=== PATIENT | female | born 1965 | race Caucasian/White ===

== ENCOUNTER 2018-04-23 06:09 | Day surgery (SDC) | payer OTHER ==
[~2018-04-23 06:09] MED LIST: CEFAZOLIN 2 GM/50 ML (PMX) 50 ML IVPB; SOD CHLORIDE 0.9% 1,000 ML IV
[2018-04-23] MEDS ORDERED: LABETALOL HCL 20MG INJ (07:00)
[2018-04-23] MEDS ORDERED: CEFAZOLIN 1 GM INJ (07:00)
[2018-04-23] MEDS ORDERED: METOCLOPRAMIDE 10 MG INJ (07:00)
[2018-04-23] MEDS ORDERED: DEXAMETHASONE 4 MG/ML 1 ML INJ (07:00)
[2018-04-23] MEDS ORDERED: SUGAMMADEX SODIUM 200 MG/2 ML VIAL IV (07:26)
[2018-04-23] MEDS ORDERED: MIDAZOLAM 1 MG/ML 2 ML INJ (07:26)
[2018-04-23] MEDS ORDERED: FENTAnyl 50 MCG/ML VIAL (07:26)
[2018-04-23] MEDS ORDERED: ROCURONIUM 50 MG INJ (07:26)
[2018-04-23] MEDS ORDERED: SUCCINYLCHOLINE CHLORIDE 100 MG/5 ML SYG IV (07:26)
[2018-04-23] MEDS ORDERED: PROPOFOL 20 ML (07:26)
[2018-04-23] MEDS ORDERED: LIDOCAINE 2% (SDV) 5 ML INJ (07:26)
[2018-04-23] MEDS ORDERED: ROPIVACAINE 0.5 % 30 ML VIAL (07:27)
[2018-04-23] MEDS ORDERED: ONDANSETRON 4 MG INJ (07:27)
[2018-04-23] MEDS ORDERED: FENTAnyl 50 MCG/ML VIAL IV ×2 (07:30)
[2018-04-23] MEDS ORDERED: KETOROLAC 30 MG INJ IV (07:30)
[2018-04-23] MEDS ORDERED: DIPHENHYDRAMINE 50 MG INJ IV (07:30)
[2018-04-23] MEDS ORDERED: IPRATROPIUM (NEB) 0.5 MG/2.5 ML AMP HHN (07:30)
[2018-04-23] MEDS ORDERED: HYDROmorphONE 1 MG/5 ML IV SYRINGE IV ×3 (07:30)
[2018-04-23] MEDS ORDERED: ONDANSETRON 4 MG INJ IV (07:30)
[2018-04-23] MEDS ORDERED: hydrALAzine 20 MG INJ IV (07:30)
[2018-04-23] MEDS ORDERED: LABETALOL HCL 20MG INJ IV (07:30)
[2018-04-23] MEDS ORDERED: MEPERIDINE 25 MG INJ IV (07:30)
[2018-04-23] MEDS: BUPIVACAINE 0.25% (MPF) 30 ML INJ (08:13)
[2018-04-23] MEDS ORDERED: HYDROCODONE/APAP (5/325) TAB PO (08:30)
== END 2018-04-23 10:45 | disposition home or self-care (01) ==
LOC: SDS 06:09
DX: K80.20 Calculus of gallbladder without cholecystitis without obstruction (principal); E66.9 Obesity, unspecified; Z68.34 Body mass index [BMI] 34.0-34.9, adult
CPT/HCPCS: 47562; 88304

== ENCOUNTER 2018-09-11 05:11 | Inpatient (IN) | payer OTHER ==
[2018-09-11] MEDS ORDERED: SEVOFLURANE 15 MIN (07:00)
[2018-09-11] MEDS ORDERED: EPHEDrine SULFATE 50 MG/5 ML SYG (07:00)
[2018-09-11] MEDS ORDERED: LIDOCAINE 2% (SDV) 5 ML INJ (07:25)
[2018-09-11] MEDS ORDERED: ROCURONIUM 50 MG INJ (07:25)
[2018-09-11] MEDS ORDERED: SUCCINYLCHOLINE CHLORIDE 100 MG/5 ML SYG IV (07:25)
[2018-09-11] MEDS ORDERED: PROPOFOL 20 ML (07:25)
[2018-09-11] MEDS ORDERED: FENTAnyl 50 MCG/ML VIAL (07:26)
[2018-09-11] MEDS ORDERED: MIDAZOLAM 1 MG/ML 2 ML INJ (07:26)
[2018-09-11] MEDS ORDERED: DEXAMETHASONE 4 MG/ML 5 ML INJ (07:38)
[2018-09-11] MEDS ORDERED: CEFAZOLIN 1 GM INJ (07:38)
[2018-09-11] MEDS ORDERED: FAMOTIDINE 20 MG INJ (07:38)
[2018-09-11] MEDS ORDERED: ONDANSETRON 4 MG INJ (07:38)
[2018-09-11] MEDS ORDERED: FENTAnyl 50 MCG/ML VIAL IV ×3 (08:00)
[2018-09-11] MEDS ORDERED: PROCHLORPERAZINE 10 MG INJ IV (08:00)
[2018-09-11] MEDS ORDERED: HYDROmorphONE 0.5 MG/0.5 ML SYG IV ×2 (08:00)
[2018-09-11] MEDS ORDERED: DIPHENHYDRAMINE 50 MG INJ IV ×2 (08:00)
[2018-09-11] MEDS ORDERED: NALOXONE (0.4 MG/ML) INJ IV (08:00)
[2018-09-11] MEDS ORDERED: HYDROmorphONE 1 MG/5 ML IV SYRINGE IV ×3 (08:00)
[2018-09-11] MEDS ORDERED: ONDANSETRON 4 MG INJ IV ×2 (08:00→10:00)
[2018-09-11] MEDS ORDERED: MEPERIDINE 25 MG INJ IV (08:00)
[2018-09-11] MEDS ORDERED: HYDROmorphONE 2 MG/ML SYG (08:12)
[2018-09-11] MEDS ORDERED: GLYCOPYRROLATE 0.4 MG INJ ×3 (09:11→09:30)
[2018-09-11] MEDS ORDERED: NEOSTIGMINE 3 MG/3 ML SYRINGE ×2 (09:11→09:30)
[2018-09-11] MEDS ORDERED: ROPIVACAINE 0.5 % 30 ML VIAL (09:13)
[2018-09-11] MEDS ORDERED: KETOROLAC 30 MG INJ (09:22)
[2018-09-11] MEDS: HYDROmorphONE 0.2 MG/ML PCA IV (09:51)
[2018-09-11] MEDS: KETOROLAC 30 MG INJ IV ×2 (16:29→22:04)
[2018-09-11] MEDS: ONDANSETRON 4 MG INJ IV (18:02)
[2018-09-11] MEDS: LACTATED RINGER'S 1,000 ML IV (18:52)
[2018-09-11] MEDS ORDERED: ZOLPIDEM 5 MG TAB PO (21:00)
[2018-09-12] MEDS: LACTATED RINGER'S 1,000 ML IV ×3 (01:00→18:39)
[2018-09-12] MEDS: KETOROLAC 30 MG INJ IV ×2 (04:21→10:14)
[2018-09-12 05:24] LABS: ADD MAN DIFF? NO
[2018-09-12 05:25] LABS: WHITE BLOOD COUNT 11.6 10^3/ul (4.8-10.8)
[2018-09-12 05:25] LABS: BASOPHILS % 0.1 % (0.0-2.0); HEMOGLOBIN 11.4 g/dl (12.0-16.0); LYMPHOCYTES # 1.4 10^3/ul (0.8-2.9); LYMPHOCYTES % 11.7 % (15.0-51.0); MEAN CORPUSCULAR HEMOGLOBIN 30.4 pg (29.0-33.0); MEAN CORPUSCULAR HGB CONC 33.5 g/dl (32.0-37.0); MEAN CORPUSCULAR VOLUME 90.7 fl (82.0-101.0); MEAN PLATELET VOLUME 10.7 fl (7.4-10.4); MONOCYTES % 8.2 % (0.0-11.0); NEUTROPHIL # 9.3 10^3/ul (1.6-7.5); NEUTROPHILS % 79.6 % (39.0-77.0); PLATELET COUNT 220 10^3/UL (140-415); RED BLOOD COUNT 3.75 10^6/ul (4.20-5.40); RED CELL DISTRIBUTION WIDTH 12.8 % (11.5-14.5)
[2018-09-12 05:39] LABS: ALANINE AMINOTRANSFERASE 24 IU/L (13-69); ALBUMIN 3.6 g/dl (3.3-4.9); ALBUMIN/GLOBULIN RATIO 1.16; ALKALINE PHOSPHATASE 71 IU/L (42-121); ANION GAP 12 (5-13); ASPARTATE AMINO TRANSFERASE 25 IU/L (15-46); BILIRUBIN,INDIRECT 0.5 mg/dl (0-1.1); BILIRUBIN,TOTAL 0.5 mg/dl (0.2-1.3); BLOOD UREA NITROGEN 12 mg/dl (7-20); CARBON DIOXIDE 29 mmol/L (21-31); CHLORIDE 101 mmol/L (97-110); CREATININE 0.64 mg/dl (0.44-1.00); Estimated GFR > 60 mL/min (>60); GLUCOSE 115 mg/dl (70-220); POTASSIUM 3.8 mmol/L (3.5-5.1); SODIUM 142 mmol/L (135-144); TOTAL PROTEIN 6.7 g/dl (6.1-8.1)
[2018-09-12] MEDS: MAGNESIUM HYDROXIDE 30ML CUP PO ×2 (06:16→14:00)
[2018-09-12] MEDS: BISACODYL 10 MG SUPP PR ×2 (06:16→14:11)
[2018-09-12] MEDS ORDERED: HYDROCODONE/APAP (5/325) TAB PO (10:00)
[2018-09-12] MEDS ORDERED: MAGNESIUM HYDROXIDE 30ML CUP PO (17:00)
[2018-09-12] MEDS ORDERED: BISACODYL 10 MG SUPP PR (17:00)
[2018-09-13] MEDS: LACTATED RINGER'S 1,000 ML IV ×2 (01:00→01:40)
[2018-09-13] MEDS: HYDROCODONE/APAP (5/325) TAB PO (04:16)
[2018-09-13 05:11] LABS: ADD MAN DIFF? NO
[2018-09-13 05:18] LABS: WHITE BLOOD COUNT 8.8 10^3/ul (4.8-10.8)
[2018-09-13 05:18] LABS: BASOPHILS % 0.3 % (0.0-2.0); EOSINOPHILS # 0.1 10^3/ul (0.0-0.5); EOSINOPHILS % 1.1 % (0.0-7.0); HEMOGLOBIN 11.2 g/dl (12.0-16.0); LYMPHOCYTES # 2.5 10^3/ul (0.8-2.9); LYMPHOCYTES % 27.8 % (15.0-51.0); MEAN CORPUSCULAR HEMOGLOBIN 29.9 pg (29.0-33.0); MEAN CORPUSCULAR HGB CONC 32.9 g/dl (32.0-37.0); MEAN CORPUSCULAR VOLUME 90.9 fl (82.0-101.0); MEAN PLATELET VOLUME 10.7 fl (7.4-10.4); MONOCYTE # 0.6 10^3/ul (0.3-0.9); MONOCYTES % 6.3 % (0.0-11.0); NEUTROPHIL # 5.6 10^3/ul (1.6-7.5); PLATELET COUNT 188 10^3/UL (140-415); RED BLOOD COUNT 3.74 10^6/ul (4.20-5.40); RED CELL DISTRIBUTION WIDTH 12.9 % (11.5-14.5)
[2018-09-13] MEDS: IBUPROFEN 800 MG TAB PO (13:38)
== END 2018-09-13 16:37 | disposition home or self-care (01) | DRG 743 ==
LOC: REC 05:11 → MS1 11:21
PROVIDERS: Obstetrics & Gynecology
PROC: 0UT90ZL Resection of Uterus, Supracervical, Open Approach (ICD-10-PCS; principal; 2018-09-11 07:24)
PROC: 0UT70ZZ Resection of Bilateral Fallopian Tubes, Open Approach (ICD-10-PCS; 2018-09-11 07:24)
PROC: 0UT20ZZ Resection of Bilateral Ovaries, Open Approach (ICD-10-PCS; 2018-09-11 07:24)
PROC: 0UB40ZX Excision of Uterine Supporting Structure, Open Approach, Diagnostic (ICD-10-PCS; 2018-09-11 07:24)
PROC: 0USG0ZZ Reposition Vagina, Open Approach (ICD-10-PCS; 2018-09-11 07:24)
DX: D25.1 Intramural leiomyoma of uterus (principal); R10.2 Pelvic and perineal pain; E66.9 Obesity, unspecified; Z68.33 Body mass index [BMI] 33.0-33.9, adult; N81.10 Cystocele, unspecified; N81.6 Rectocele; D28.2 Benign neoplasm of uterine tubes and ligaments; N81.89 Other female genital prolapse
CPT/HCPCS: 80053; 84702; 84703; 85025; 86850; 86900; 86901; 88305